=== PATIENT | female | born 2000 | race Caucasian/White ===

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

== ENCOUNTER 2023-02-12 04:51 | Inpatient (IN) | payer BC, MEDICAID, OTHER ==
[~2023-02-12 04:51] MED LIST: Ropivacaine 0.2% PF 2 MG/ML 20 ML SDV ONE
[2023-02-12] MEDS ORDERED: Lidocaine 1% 50 ML MDV INJECT ONE (05:11)
[2023-02-12] MEDS ORDERED: Nalbuphine 10 MG/0.5 ML Syringe IVPUSH PRN (05:11)
[2023-02-12] MEDS ORDERED: Ondansetron 4 MG/2 ML SDV IVPUSH PRN (05:11)
[2023-02-12] MEDS ORDERED: Acetaminophen 325 MG Tab PO PRN ×2 (05:11→09:50)
[2023-02-12] MEDS ORDERED: Calcium Carbonate 500 MG Tab.Chew PO PRN (05:11)
[2023-02-12] MEDS ORDERED: Oxytocin/Lactated Ringers 10 UNIT/1,000 ML BAG IV SCH ×2 (05:15)
[2023-02-12] MEDS: Lactated Ringers 1,000 ML IV SCH ×2 (05:44→06:10)
[2023-02-12] MEDS ORDERED: Bupivacaine/fentaNYL/NS 100 ML Bag EPIDUR PRN (06:03)
[2023-02-12] MEDS ORDERED: ePHEDrine 50 MG/ML SDV IVPUSH PRN (06:03)
[2023-02-12] MEDS ORDERED: fentaNYL 100 MCG/2 ML SDV EPIDUR PRN (06:03)
[2023-02-12] MEDS ORDERED: diphenhydrAMINE 50 MG/ML SDV IVPUSH PRN (06:03)
[2023-02-12 06:24] LABS: BASOPHILS ABSOLUTE AUTO 0.04 K/mm3 (0.01-0.08); BASOPHILS PERCENT AUTO 0.5 % (0.1-1.2); EOSINOPHILS PERCENT AUTO 2.3 (0.7-5.8); HEMATOCRIT 35.1 % (34.1-44.9); IMMATURE GRAN ABSOLUTE AUTO 0.03 K/mm3 (0.00-0.10); IMMATURE GRAN PERCENT AUTO 0.3 % (<=1.0); LYMPHOCYTES ABSOLUTE AUTO 2.26 K/mm3 (1.18-3.74); LYMPHOCYTES PERCENT AUTO 25.6 % (19.3-51.7); MEAN CORPUSCULAR HEMOGLOBIN 25.2 pg (25.6-32.2); MEAN CORPUSCULAR HGB CONC 31.1 g/dl (32.2-35.5); MEAN CORPUSCULAR VOLUME 81.1 fl (79.4-94.8); MEAN PLATELET VOLUME 9.7 fl (9.4-12.3); MONOCYTES ABSOLUTE AUTO 0.98 K/mm3 (0.24-0.36); MONOCYTES PERCENT AUTO 11.1 % (4.7-12.5); NEUTROPHILS ABSOLUTE AUTO 5.32 K/mm3 (1.56-6.13); NEUTROPHILS PERCENT AUTO 60.2 % (34.0-71.1); PLATELET COUNT,PLT 253 K/mm3 (182-369); RED BLOOD CELL COUNT 4.33 M/mm3 (3.98-5.22); WHITE BLOOD CELL COUNT,WBC 8.83 K/mm3 (3.98-10.04)
[2023-02-12 06:42] LABS: HEMOGLOBIN 10.9 gm/dl (11.2-15.7)
[2023-02-12] MEDS ORDERED: Docusate Sodium 100 MG Cap PO PRN (09:50)
[2023-02-12] MEDS ORDERED: Witch Hazel Medicated Pads 40/Jar TOP PRN (09:50)
[2023-02-12] MEDS ORDERED: Ibuprofen 600 MG Tab PO PRN (09:50)
[2023-02-12] MEDS ORDERED: Benzocaine/Menthol 20%-0.5% Spray 78 GM Cannister TOP PRN (09:50)
[2023-02-13 08:03] VITALS: BP 128/55; PULSE 56
== END 2023-02-13 13:10 | disposition home or self-care (01) | DRG 807 ==
LOC: JD.OBCHECK 04:51 → JD.OB 04:57 → JD.OBCHECK 05:11 → JD.OB 05:12 → OBSVTOIN 07:06 → JD.OB 07:07
PROVIDERS: ADMIT Obstetrics & Gynecology; ATTEND Obstetrics & Gynecology
PROC: 00HU33Z Insertion of Infusion Device into Spinal Canal, Percutaneous Approach (ICD-10-PCS; principal; 2023-02-12)
PROC: 3E0R3BZ Introduction of Anesthetic Agent into Spinal Canal, Percutaneous Approach (ICD-10-PCS; principal; 2023-02-12)
PROC: 10E0XZZ Delivery of Products of Conception, External Approach (ICD-10-PCS; principal; 2023-02-12)
PROC: 10907ZC Drainage of Amniotic Fluid, Therapeutic from Products of Conception, Via Natural or Artificial Opening (ICD-10-PCS; principal; 2023-02-12)
DX: O26.893 Other specified pregnancy related conditions, third trimester (principal); Z37.0 Single live birth; Z67.41 Type O blood, Rh negative; Z3A.37 37 weeks gestation of pregnancy
CPT/HCPCS: 36415; 59025; 59409; 85025; 86592; 86850; 86870; 86900; 86901; A9270-GY; J2405; J2590; J2795; J3490; J7120

== ENCOUNTER 2024-07-12 09:15 | Inpatient (IN) | payer SELFPAY ==
[2024-07-12] MEDS ORDERED: Nalbuphine 10 MG/1 ML Vial IVPUSH PRN (09:27)
[2024-07-12] MEDS ORDERED: Ondansetron 4 MG/2 ML SDV IVPUSH PRN (09:27)
[2024-07-12] MEDS ORDERED: Lidocaine 1% 50 ML MDV INJECT PRN (09:27)
[2024-07-12] MEDS ORDERED: Acetaminophen 325 MG Tab PO PRN (09:27)
[2024-07-12] MEDS ORDERED: Lactated Ringers 1,000 ML IV SCH (09:30)
[2024-07-12] MEDS: Oxytocin/0.9 % Sodium Chloride 30 UNIT/500 ML BAG IV SCH (09:35)
[2024-07-12 09:49] LABS: BASOPHILS PERCENT AUTO 0.5 % (0.0-1.0); EOSINOPHILS ABSOLUTE AUTO 0.2 K/mm3 (0.0-0.4); EOSINOPHILS PERCENT AUTO 2.9 % (0.0-6.0); HEMATOCRIT 37.6 % (37.0-47.0); HEMOGLOBIN 11.9 gm/dl (12.0-16.0); IMMATURE GRAN ABSOLUTE AUTO 0.03 K/mm3 (0.00-0.05); IMMATURE GRAN PERCENT AUTO 0.4 % (0.0-0.4); LYMPHOCYTES ABSOLUTE AUTO 1.8 K/mm3 (1.0-4.8); MEAN CORPUSCULAR HEMOGLOBIN 25.5 pg (28.0-32.0); MEAN CORPUSCULAR HGB CONC 31.6 g/dl (32.0-36.0); MEAN CORPUSCULAR VOLUME 80.7 fl (83.0-99.0); MEAN PLATELET VOLUME 9.8 fl (9.4-12.3); MONOCYTES ABSOLUTE AUTO 0.6 K/mm3 (0.0-0.8); MONOCYTES PERCENT AUTO 7.2 % (0.0-8.0); NEUTROPHILS ABSOLUTE AUTO 5.6 K/mm3 (1.8-7.7); PLATELET COUNT,PLT 235 K/mm3 (150-400); RED BLOOD CELL COUNT 4.66 M/mm3 (4.10-5.30); WHITE BLOOD CELL COUNT,WBC 8.36 K/mm3 (3.9-11.3)
[2024-07-12] MEDS ORDERED: Benzocaine/Menthol 20%-0.5% Spray 78 GM Cannister TOP PRN (10:02)
[2024-07-12] MEDS ORDERED: Witch Hazel Medicated Pads 40/Jar TOP PRN (10:02)
[2024-07-12] MEDS: Ibuprofen 800 MG Tab PO SCH (13:24)
[2024-07-13 12:48] VITALS: BP 115/83; PULSE 50
== END 2024-07-13 11:55 | disposition home or self-care (01) | DRG 807 ==
LOC: JD.OBCHECK 09:15 → JD.OB 09:19 → OBSVTOIN 10:02 → JD.OB 10:02
PROVIDERS: ADMIT Obstetrics & Gynecology; ATTEND Obstetrics & Gynecology
PROC: 10E0XZZ Delivery of Products of Conception, External Approach (ICD-10-PCS; principal; 2024-07-12)
DX: O26.893 Other specified pregnancy related conditions, third trimester (principal); Z37.0 Single live birth; O99.344 Other mental disorders complicating childbirth; F41.9 Anxiety disorder, unspecified; F32.A Depression, unspecified; O99.02 Anemia complicating childbirth; Z3A.39 39 weeks gestation of pregnancy; O69.81X0 Labor and delivery complicated by cord around neck, without compression, not applicable or unspecified; Z67.41 Type O blood, Rh negative
CPT/HCPCS: 36415; 59025; 59409; 85025; 86592; 86850; 86870; 86900; 86901; J7999

== ENCOUNTER 2025-06-29 21:45 | Emergency (ER) | payer SELFPAY ==
[2025-06-29 22:55] LABS: APPEARANCE,URINE CLOUDY (Clear); GLUCOSE,URINE NEGATIVE (Negative); OCCULT BLOOD,URINE 3+ (Negative)
[2025-06-29 23:30] LABS: EPITHELIAL CELLS,URINE 0-5 /hpf (0-5); YEAST BUDDING,URINE FEW (NOT SEEN)
[2025-06-30] MEDS: cefTRIAXone 1 GM in Water For Injection, Sterile 10 ML IVPUSH ONE (00:51)
[2025-06-30] MEDS: Phenazopyridine 95 MG Tab PO SCH (00:52)
[2025-06-30 00:58] VITALS: BP 101/72; PULSE 75
== END 2025-06-30 00:57 | disposition home or self-care (01) ==
LOC: JD.ED 21:45
DX: N12 Tubulo-interstitial nephritis, not specified as acute or chronic (principal); Z90.89 Acquired absence of other organs
CPT/HCPCS: 76857; 81001; 96374; 99284; A9270; J0696